=== PATIENT | male | born 2000 | race Caucasian/White ===

== ENCOUNTER 2024-05-31 16:50 | Emergency (ER) | payer MEDICAID ==
[~2024-05-31] VITALS: Ht 167.6 cm; Wt 68.0 kg
[2024-05-31 17:07] VITALS: O2SAT 99
[2024-05-31] MEDS ORDERED: MAGNESIUM/ALUMINUM HYDROXIDE/SIMETHICONE 30ML UDC PO STA (18:27)
[2024-05-31] MEDS ORDERED: DICYCLOMINE 10 MG/5 ML ORAL SYR PO STA (18:27)
[2024-05-31] MEDS ORDERED: CHLORDIAZEPOXIDE 25MG CAPSULE PO ONE (18:30)
[2024-05-31 18:36] LABS: HEMATOCRIT. 47.8 % (42.0-52.0); MEAN CORPUSCULAR HEMOGLOBIN 30.8 pg (28.0-32.0); MEAN CORPUSCULAR HGB CONC 33.6 g/dL (31.0-37.0); MEAN CORPUSCULAR VOLUME 91.7 fL (80.0-94.0); MEAN PLATELET VOLUME 8.9 fl (7.4-10.4); PLATELET 227 x1000/uL (130-400); RED BLOOD CELL COUNT 5.21 mill/uL (4.7-6.1); RED CELL DISTRIBUTION WIDTH 15.4 % (11.6-14.6); WHITE BLOOD COUNT 12.9 x1000/uL (4.5-11.0)
[2024-05-31 18:41] LABS: CHLORIDE 97 mEq/L (98-107); POTASSIUM 3.3 mEq/L (3.5-5.1); SODIUM 137 mEq/L (136-145)
[2024-05-31 18:42] LABS: CALCIUM 10.6 mg/dL (8.7-10.4); CARBON DIOXIDE 32 mEq/L (21-32)
[2024-05-31 18:43] LABS: DIFFERENTIAL COMMENT 1
[2024-05-31 18:47] LABS: CREATININE 0.8 mg/dL (0.6-1.3); GLUCOSE 132 mg/dL (70-105)
[2024-05-31 18:48] LABS: UREA NITROGEN BLOOD 8 mg/dL (9-23)
[2024-05-31 18:49] LABS: ALANINE AMINOTRANSFERASE 69 IU/L (10-49); ALBUMIN 5.5 g/dL (3.2-4.8); ASPARTATE AMINOTRANSFERASE 70 IU/L (<34); BILIRUBIN DIRECT 0.6 mg/dL (<=3.0)
[2024-05-31 18:50] LABS: PROTEIN TOTAL 8.9 g/dL (6.0-8.3)
[2024-05-31] MEDS ORDERED: DICYCLOMINE HCL 10MG CAPSULE PO NR (19:00)
[2024-05-31] MEDS ORDERED: OMEP40CA20 MT (19:26)
[2024-05-31 19:56] VITALS: BP 134/77; PULSE 99; RESP 10; TEMP 36.89184; O2SAT 99
[2024-05-31 20:13] LABS: PLATELET ESTIMATE NORMAL
== END 2024-05-31 19:57 | disposition home or self-care (01) ==
LOC: ER 16:50
DX: K85.90 Acute pancreatitis without necrosis or infection, unspecified (principal); K70.10 Alcoholic hepatitis without ascites
CPT/HCPCS: 36415; 76705; 80048; 80076; 80320; 85025; 93005; 99284; G0480